=== PATIENT | male | born 1995 | race Caucasian/White ===

== ENCOUNTER → 2020-04-28 07:44 | Outpatient (BNVA) | payer OTHER, SELFPAY | PROVIDERS: Visit Provider Internal Medicine | DX: S29.012A Strain of muscle and tendon of back wall of thorax, initial encounter (principal); W18.39XD Other fall on same level, subsequent encounter | CPT/HCPCS: 99202 ==

== ENCOUNTER → 2020-05-01 12:44 | Outpatient (BNVA) | payer OTHER, SELFPAY | PROVIDERS: Visit Provider Internal Medicine | DX: S29.012A Strain of muscle and tendon of back wall of thorax, initial encounter (principal); X58.XXXA Exposure to other specified factors, initial encounter | CPT/HCPCS: 99213 ==